=== PATIENT | female | born 1950 | race Asian ===

== ENCOUNTER 2017-09-06 06:50 | Emergency (ER) | payer MEDICARE, OTHER ==
[~2017-09-06] VITALS: Wt 48.0 kg
[2017-09-06] MEDS ORDERED: SOD CHLORIDE 0.9% 1,000 ML IV STA (07:07)
[2017-09-06] MEDS ORDERED: PANTOPRAZOLE 40 MG INJ IV STA (07:07)
[2017-09-06] MEDS ORDERED: morphine 4 MG/ML VIAL IV STA (07:51)
[2017-09-06] MEDS ORDERED: ONDANSETRON 4 MG INJ IV STA (07:51)
[2017-09-06 08:24] LABS: BASOPHIL # 0.1 10^3/ul (0.0-0.1); BASOPHILS % 0.5 % (0.0-2.0); EOSINOPHILS # 0.6 10^3/ul (0.0-0.5); EOSINOPHILS % 4.2 % (0.0-7.0); LYMPHOCYTES # 1.6 10^3/ul (0.8-2.9); LYMPHOCYTES % 11.7 % (15.0-51.0); MEAN CORPUSCULAR HEMOGLOBIN 30.3 pg (29.0-33.0); MEAN CORPUSCULAR HGB CONC 33.3 g/dl (32.0-37.0); MEAN CORPUSCULAR VOLUME 90.9 fl (82.0-101.0); MEAN PLATELET VOLUME 9.4 fl (7.4-10.4); MONOCYTE # 0.7 10^3/ul (0.3-0.9); MONOCYTES % 5.5 % (0.0-11.0); NEUTROPHIL # 10.4 10^3/ul (1.6-7.5); NEUTROPHILS % 77.7 % (39.0-77.0); PLATELET COUNT 339 10^3/UL (140-415); RED BLOOD COUNT 3.63 10^6/ul (4.20-5.40); RED CELL DISTRIBUTION WIDTH 11.9 % (11.5-14.5); WHITE BLOOD COUNT 13.4 10^3/ul (4.8-10.8)
[2017-09-06 08:45] LABS: INR 0.95; PROTIME 12.8 Sec (11.9-14.9)
[2017-09-06 08:46] LABS: PARTIAL THROMBOPLASTIN TIME 48.3 Sec (25.0-35.0)
[2017-09-06 08:47] LABS: ALANINE AMINOTRANSFERASE 53 IU/L (13-69); ALBUMIN 4.4 g/dl (3.3-4.9); ALKALINE PHOSPHATASE 83 IU/L (42-121); ANION GAP 14 (8-16); ASPARTATE AMINO TRANSFERASE 65 IU/L (15-46); BILIRUBIN,INDIRECT 0.6 mg/dl (0-1.1); BILIRUBIN,TOTAL 0.6 mg/dl (0.2-1.3); BLOOD UREA NITROGEN 16 mg/dl (7-20); CALCIUM 10.9 mg/dl (8.4-10.2); CARBON DIOXIDE 28 mmol/L (21-31); CHLORIDE 102 mmol/L (97-110); CREATININE 0.73 mg/dl (0.44-1.00); GLUCOSE 103 mg/dl (70-220); SODIUM 140 mmol/L (135-144); TOTAL PROTEIN 8.4 g/dl (6.1-8.1)
[2017-09-06 09:02] LABS: TROPONIN-I < 0.012 ng/ml (0.00-0.12)
[2017-09-06] MEDS ORDERED: ATOR10TA65 PO (09:19)
--- NOTE | 2017-09-06 10:50 | ERD ---
ER Documentation Chief Complaint Chief Complaint Abd pain and blood in stool x this am HPI Patient is a 66-year-old female with no medical problems who presents with rectal bleeding. She said that at midnight she started with rectal bleeding and it lasted until 4 AM. It was bright red blood that was a lot of blood coming from her rectum. She has lower abdominal pain as well. She denies vomiting. She is not on blood thinners. She has had no treatment as of yet. She has never had a colonoscopy or endoscopy. Upon review of old medical records this is the patient's first visit to the emergency department. Her primary doctor is Dr. Cirilo Adorno. ROS All systems reviewed and are negative except as per history of present illness. Medications Home Meds Reported Medications Atorvastatin Calcium (Atorvastatin Calcium) 10 Mg Tablet, 10 MG PO QHS, #30 TAB 09/06/17 Allergies Allergies: Coded Allergies: No Known Allergy (Unverified , 09/06/17) PMhx/Soc History of Surgery: No Anesthesia Reaction: No Hx Neurological Disorder: No Hx Respiratory Disorders: Yes (chronic Cough) Hx Cardiac Disorders: No Hx Psychiatric Problems: No Hx Miscellaneous Medical Probl: No Hx Alcohol Use: No Hx Substance Use: No Hx Tobacco Use: No Smoking Status: Never smoker FmHx Family History: No diabetes Physical Exam Vitals Vital Signs Date Time Temp Pulse Resp B/P Pulse Ox O2 Delivery O2 Flow Rate FiO2 09/06/17 09:00 97.9 64 16 122/76 99 Room Air 09/06/17 06:56 97.5 87 18 125/73 99 Physical Exam Const: Mild distress Head: Atraumatic Eyes: Normal Conjunctiva ENT: Normal External Ears, Nose and Mouth. Neck: Full range of motion..~ No meningismus. Resp: Clear to auscultation bilaterally Cardio: Regular rate and rhythm, no murmurs Abd: Soft, non tender, non distended. Normal bowel sounds Skin: Pale skin Back: No midline or flank tenderness Ext: No cyanosis, or edema Neur: Awake and alert Rectal: No hemorrhoids, no active bleeding, heme-negative stool Result Diagram: 09/06/17 0757 09/06/17 0757 Results 24 hrs Laboratory Tests Test 09/06/17 07:07 09/06/17 07:57 Stool Occult Blood NEGATIVE White Blood Count 13.410^3/ul Red Blood Count 3.6310^6/ul Hemoglobin 11.0g/dl Hematocrit 33.0% Mean Corpuscular Volume 90.9fl Mean Corpuscular Hemoglobin 30.3pg Mean Corpuscular Hemoglobin Concent 33.3g/dl Red Cell Distribution Width 11.9% Platelet Count 50701^3/UL Mean Platelet Volume 9.4fl Neutrophils % 77.7% Lymphocytes % 11.7% Monocytes % 5.5% Eosinophils % 4.2% Basophils % 0.5% Nucleated Red Blood Cells % 0.0/100WBC Neutrophils # 10.410^3/ul Lymphocytes # 1.610^3/ul Monocytes # 0.710^3/ul Eosinophils # 0.610^3/ul Basophils # 0.110^3/ul Nucleated Red Blood Cells # 0.010^3/ul Prothrombin Time 12.8Sec Prothrombin Time Ratio 1.0 INR International Normalized Ratio 0.95 Activated Partial Thromboplast Time 48.3Sec Sodium Level 140mmol/L Potassium Level 4.0mmol/L Chloride Level 102mmol/L Carbon Dioxide Level 28mmol/L Anion Gap 14 Blood Urea Nitrogen 16mg/dl Creatinine 0.73mg/dl Glucose Level 103mg/dl Calcium Level 10.9mg/dl Total Bilirubin 0.6mg/dl Direct Bilirubin 0.00mg/dl Indirect Bilirubin 0.6mg/dl Aspartate Amino Transf (AST/SGOT) 65IU/L Alanine Aminotransferase (ALT/SGPT) 53IU/L Alkaline Phosphatase 83IU/L Troponin I < 0.012ng/ml Total Protein 8.4g/dl Albumin 4.4g/dl Globulin 4.00g/dl Albumin/Globulin Ratio 1.10 Current Medications Medications (Trade) Dose Ordered Sig/Pancho Route PRN Reason Start Time Stop Time Status Last Admin Dose Admin Sodium Chloride (NS) 1,000 ml @ 1,000 mls/hr Q1H STAT IV 09/06/17 07:07 09/06/17 08:06 DC 09/06/17 07:45 Pantoprazole (Protonix Iv) 40 mg ONCE STAT IV 09/06/17 07:07 09/06/17 07:08 DC 09/06/17 07:44 Morphine Sulfate (morphine) 4 mg ONCE STAT IV 09/06/17 07:51 09/06/17 07:52 DC 09/06/17 08:00 Ondansetron HCl (Zofran Inj) 4 mg ONCE STAT IV 09/06/17 07:51 09/06/17 07:52 DC 09/06/17 08:00 Procedures/MDM EKG read by me: Rate/Rhythm: Regular rate and rhythm at a normal rate Intervals: Normal Impression: No evidence of ischemia or arrhythmia Patient is a 66-year-old female presents with rectal bleeding. I am concerned about an acute lower GI bleed and there is potential for malignancy as the patient has never had a colonoscopy before. The patient has anemia with a hemoglobin of 11 but does not require transfusion at this time. The patient will be admitted to Dr. Whitman at [facility] as the patient has [employer]. The patient will be transferred by ambulance. I do believe the patient requires inpatient level of care and I am concerned for further bleeding. Departure Diagnosis: Primary Impression: Rectal hemorrhage Condition: RENETTA Pickard MD Sep 06, 2017 10:50
[2017-09-06 11:02] VITALS: BP 124/78; PULSE 65; RESP 18; TEMP 98.1
== END 2017-09-06 11:03 | disposition short-term general hospital (02) ==
LOC: E/R 06:50
DX: K62.5 Hemorrhage of anus and rectum (principal); R10.13 Epigastric pain
CPT/HCPCS: 36415; 80053; 82270; 84484; 85025; 85610; 85730; 86850; 86900; 86901; 93005; 96374; 96375; 99285; C9113; J2270; J2405; J7030